=== PATIENT | male | born 1965 | race Caucasian/White ===

== ENCOUNTER 2019-03-08 11:26 | Inpatient (IN) | payer BC ==
[~2019-03-08] VITALS: Ht 185.4 cm; Wt 75.7 kg
[~2019-03-08 11:26] MED LIST: BYSTOLIC 5 MG5 M1 PO; FISH OIL 500 M1 EAC2 PO; LIPITOR40 MG PO; LO-DOSE ASPIRIN81 M1 PO; LOPRESSOR 50 MG50 M1 PO; LOPRESSOR25 PO; MULTI-VITAMIN1 EAC5 PO; PLAVIX 75 MG TA75 M1 PO; TOPROL XL50 MG PO; ZANTAC 150MG T150 M1 PO
[2019-03-08 11:33] VITALS: BP 155/86
[2019-03-08 12:44] LABS: ABSOLUTE NEUTROPHILS 6.4 thou/uL (1.4-8.2); BASOPHILS 0.7 % (0.0-2.0); EOSINOPHILS 0.4 % (0.0-3.0); HEMATOCRIT 48.2 % (42.0-52.0); HEMOGLOBIN 16.6 gm/dL (14.0-18.0); LYMPHOCYTES 12.5 % (24.0-44.0); MCH 31.4 pg (26.0-34.0); MCHC 34.5 g/dL (28.0-37.0); MONOCYTES 5.1 % (1.0-8.0); PLATELET COUNT 151 thou/uL (150-400); POLYS 81.3 % (36.0-66.0); RDW 13.5 % (10.5-14.5); WBC 7.9 thou/uL (4.0-11.0)
[2019-03-08 12:51] LABS: ANION GAP 11 mmol/L (7-16); BUN 13 mg/dL (7-18); CALCIUM 9.3 mg/dL (8.5-10.1); CHLORIDE 103 mmol/L (98-107); CO2 26 mmol/L (21-32); GLUCOSE 93 mg/dL (74-106); POTASSIUM 3.9 mmol/L (3.5-5.1); SODIUM 140 mmol/L (136-145)
[2019-03-08 13:00] LABS: TROPONIN-I <0.06 ng/mL (<0.06)
[2019-03-08 16:29] VITALS: BP 155/86
[2019-03-08 16:54] VITALS: BP 118/62
[2019-03-08 17:45] VITALS: BP 175/100
--- NOTE | 2019-03-08 19:31 | NUR ---
PATIENT ARRIVED FROM ED VIA W/C. ALERT AND ORIENTED X4. CP AT 08/18, SPOUSE AT BEDSIDE. S/B LAMMOGLIA. ADMISSION COMPLETED.
[2019-03-08 20:34] VITALS: BP 143/84
[2019-03-09] VITALS (13 sets, daily range): BP systolic 106–414; BP diastolic 71–89
--- NOTE | 2019-03-09 06:19 | NUR ---
PT A&O, NO CHEST PAIN OVERNIGHT. PT C/O MILD GENERALIZED ACHES. OBTAINED ORDER FOR TYLENOL, WHICH HELPED RESOLVE ACHES. PT REFUSED 2000 TROPONIN LAST NIGHT D/T DR. DOSS TOLD HIM THEY WOULD NOT CHECK IT AGAIN TILL MORNING. WILL CONTINUE TO MONITOR.
--- NOTE | 2019-03-09 17:11 | NUR ---
ASSUMED CARE AT SHIFT CHANGE, ALERT AND ORIENTED X4. DENIES ANY CP OR DISCOMFORT. VSS. CATHED TODAY BY DR DOSS AND INTERVETILIANNE. RT [facility] SITE D/C/I. ON BED REST UNTIL 1945, AND WILL CONTINUE WITH POC.
--- NOTE | 2019-03-09 22:30 | NUR ---
D/C HOME WITH 2027 PER SELAM. AM NURSE GAVE ALL DISCHARGE PAPER/TEACHING. IV D/C THIS SHELBYE.
--- NOTE | 2019-03-11 08:08 | EKG ---
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 : 1965 Requested By: Solitario Vidal Order Number: [id number] MD: Valeriano Collier Measurements Intervals [place] Rate: 64 P: 39 [place]: 159 QRS: 18 QRSD: 100 T: 61 QT: 413 QTc: 426 Interpretive Statements Sinus rhythm Nonspecific ST and T wave abnormality Compared to ECG 04/01/2012 11:18:25 Nonspecific change in the ST and T-wave segments Electronically Signed On 03-11-2019 8:08:03 CDT by Valeriano Collier [email or web address] <ELECTRONICALLY SIGNED> By: Valeriano Collier MD, [facility] 03/11/19 0808 [id number] [id number] Valeriano Collier MD, [facility] /EPI
--- NOTE | 2019-03-11 08:59 | EKG ---
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1965 Requested By: Solitario Vidal Order Number: [id number] MD: Vicente Peralta Measurements Intervals [place] Rate: 63 P: -15 ID: 134 QRS: -1 QRSD: 105 T: 45 QT: 444 QTc: 455 Interpretive Statements Sinus rhythm Borderline T wave abnormalities Minimal ST elevation, anterior leads Compared to ECG 04/01/2012 11:18:25 T-wave abnormality now present ST (T wave) deviation now present Electronically Signed On 03-11-2019 8:59:08 CDT by Vicente Peralta [email or web address] <ELECTRONICALLY SIGNED> By: Vicente Peralta MD 03/11/19 0859 1624 1624 Vicente Peralta MD /EPI
--- NOTE | 2019-03-11 09:03 | EKG ---
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
--- NOTE | 2019-03-11 17:35 | CATHLAB ---
[facility] [address] [place] [address] INVASIVE PROCEDURE REPORT Name: TE ELIZABETH Room #: 214-P [facility] IN M.R.#: [id number] Admission: 03/08/19 Attend Phys: Bud Dobson, Discharge: 03/09/19 Date of : 61 Date of Service: 03/11/19 1735 Report #: [id number] THIS REPORT FOR: //name// APPROVED REPORT Study performed: 03/09/2019 14:21:36 Patient Details Patient Status: In-Patient Room #: The patient is a 53 year-old male Event Personnel Bud Dobson Labor Standards Director, Michael Hamilton RN RN, Divya Bradley Monitor, Fabiano Whitaker RTR Scrub Procedures Performed Art Access - R femoral artery* 67828 Initial Mod Sed Same Phys/QHP Gr5y 724761 27067 Mod Sed Same Phys/QHP Ea 987836 Left Heart Cath w/or w/o Coronaries [id number] [facility] Aortogram Abdominal Peripheral Angio 827785 Hemostasis w/ Mynx Indication Chest pain Procedure Narrative The patient was brought urgently to the Cardiac Catheterization Laboratory and was prepped and draped in a sterile manner. The Right Groin^ was infiltrated with 1% Lidocaine subcutaneous anesthesia. A PINNACLE 6FR Sheath #[id number] sheath was inserted into the RFA^. Coronary angiography was performed using coronary diagnostic catheters. The right coronary system was accessed and visualized with a JL 4 catheter. The left coronary system was accessed and visualized with a JL 5 catheter. The left ventricle was accessed and visualized with a Pigtail catheter. Left ventriculogram was performed in BAUTISTA projection. An aortogram of the abdominal aorta was performed. Pre-demployment femoral angiogram was performed . Closure device was deployed with a 6 Fr Mynx. The patient tolerated the procedure well and there were no complications associated with the procedure. There was no hematoma. Intraoperative Conscious Sedation Sedation start time: 15:09 Case end Time: 15:55 Fentanyl 200 mcg Versed 4 mg [facility] [address] [place] [address] INVASIVE PROCEDURE REPORT Name: TE ELIZABETH Room #: 214-P [facility] IN .R.#: [id number] Admission: 03/08/19 Attend Phys: Bud Dobson, Discharge: 03/09/19 Date of : 61 Date of Service: 03/11/19 1735 Report #: [id number] Fluoro Time: 5.40 minutes Dose: DAP 4620.00 cGycm2 546 mGy Contrast Type and Amount: Omnipaque 120 ml Hemodynamics The aortic pressure is 124/71 mmHg with a mean of 94 mmHg. The left ventricular pressure is 148/10 mmHg with a mean of mmHg. The left ventricular end diastolic pressure is 24 mmHg. Conclusion #1 left main with distal narrowing of 30% giving rise to a ramus LAD and circumflex #2 the LAD previously stented has a 60% to 70% stenosis proximal to previously placed stent which is mildly re-narrowed this and extends around the apex was this shows no progression since the catheterization of 2011. Not flow limiting. #3 there is a ramus intermedius with bifurcates the proximal portion of this ramus is also 60-70% but appears unchanged on the exam of 2012. #4 ostial circumflex 40-50% disease with a well preserved circumflex OM otherwise #5 large dominant right coronary artery was mildly ectatic there is no occlusive disease noted. #6 normal left ventricular size with subtle anterior apical wall leg EF 55% #7 abdominal aorta is intact without aneurysm single bilateral renal arteries appear widely patent Recognitions and plan: Is not clear the etiology for troponin of 1.08. I don't see evidence of significant progression since exam of 2011. He's had no symptoms and is otherwise very active until the event yesterday morning. Will continue current regimen I have added 5 mg of by systolic for cardioprotection and vasodilatation. I will follow up with Mr. elizabeth in 2-3 weeks. Transfer to CCU for discharge protocol. <ELECTRONICALLY SIGNED> By: Bud Dobson MD, FACC 03/11/19 1735 173 173 Bud Dobson MD, FACC /INF
--- NOTE | 2019-03-12 17:11 | H ---
[facility] [place] [address] HISTORY AND PHYSICAL Name: SIIDRO ELIZABETH Room #: 214-P [facility] IN M.R.#: [id number] Admission: 03/08/19 Attend Phys: Bud Dobson MD, Discharge: 03/09/19 Date of : 61 Report #: [id number] THIS REPORT FOR: //name// CC: Isidro Dobson DATE OF SERVICE: 03/08/2019 HISTORY OF PRESENT ILLNESS: The patient is a 53-year-old male well known to myself who was playing basketball this morning, had an episode of substernal chest pain and radiation to left arm. History of 2 coronary stents placed to his LAD by Dr. Solitario Garza 11 years ago. I performed cardiac catheterization on the patient in 2011. LAD stents are widely patent, circ and RCA had mild disease. There was a trifurcation diagonal branch relatively small that had moderate disease of 70-75%. He has not had any recurrent anginal symptoms. He seems me regularly for yearly stress test the last of which was 6 months ago or so. His only medications are aspirin and Lipitor. His lipids have been well controlled. There has been no fatigue, shortness of breath, dyspnea or change in exercise tolerance as symptoms were prior to his stents in 2010. PAST MEDICAL HISTORY: Positive for cardiac stents, hypercholesterolemia, hypertension which really has been well controlled without medications, tonsillectomy, appendectomy and ruptured disk. SOCIAL HISTORY: He is . No tobacco use. Minimal social alcohol use. Still walks on a daily basis. FAMILY HISTORY: Father had coronary artery disease, but he was older. REVIEW OF SYSTEMS: Negative except for stated above with some nocturia. PHYSICAL EXAMINATION: VITAL SIGNS: Blood pressure is 150/98, pulse 60s and regular. HEENT: Eyes reveal xanthelasmas. Pharynx is clear. NECK: Shows preserved upstrokes without JVD or bruits. LUNGS: Clear. CARDIOVASCULAR: Regular rate and rhythm, S1, S2, without murmur or gallop. ABDOMEN: Soft. No HSM or abdominal bruit. EXTREMITIES: Reveal no edema. His pulses are intact. NEUROLOGIC: Nonfocal. SKIN: Warm and dry without xanthoma or ulcer. MUSCULOSKELETAL: No gross joint deformity. ASSESSMENT: 1. Chest pain with no EKG changes and a very equivocal troponin. Laboratory [address] [address] HISTORY AND PHYSICAL Name: ISIDRO ELIZABETH Room #: 214-P [facility] IN M.R.#: [id number] Admission: 03/08/19 Attend Phys: Bud Dobson MD, Discharge: 03/09/19 Date of : 61 Report #: [id number] work revealed 0.06 and 0.08; 0.06 is a cutoff. Creatinine 1.0, potassium 3.9. H and H 16 and 48. Chest x-ray, no acute process. 2. Hypercholesterolemia. 3. CAD by history, prior stents placed in 2010 and a diagonal lesion from 2011 catheterization not intervened on. RECOMMENDATIONS AND PLAN: We will admit under observation. We will place in observation CCU. Repeat EKG and troponin in the a.m. This is difficult because of unfortunately holiday weekend. I do not have the capability of performing a stress test, which I would perform if the troponin does not change or essentially proceed to the catheterization lab. Further recommendations would depend on how the patient progresses tonight and what the EKG and troponin are in the morning. This has been discussed with the patient's family. He is completely pain free. He has taken his aspirin and Lipitor today. We will place him on observation and have further recommendations in the a.m. Thank you for asking me to see this patient. <ELECTRONICALLY SIGNED> By: Bud Dobson MD, FACC 03/12/19 1711 1610 1648 Bud Dobson MD, FACC /nt
--- NOTE | 2019-03-12 17:11 | D ---
[facility] [place] [address] DISCHARGE SUMMARY Name: ISIDRO ELIZABETH Room #: 214-P [facility] IN M.R.#: [id number] Admission: 03/08/19 Attend Phys: Bud Dobson MD, Discharge: 03/09/19 Date of : 61 Report #: [id number] THIS REPORT FOR: //name// CC: Isidro Dobson DATE OF SERVICE: 03/09/2019 HOSPITAL COURSE: The patient is a 53-year-old, known to myself. He admitted with having an onset of chest pain, pressure consistent with his angina playing basketball yesterday morning. Initial troponin was less than 0.06, second troponin was 0.08. I would like to keep him overnight and the troponin was 1.08 this morning with no recurrent chest pain and no EKG changes. 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 He has had no issues up until this one event yesterday. Subsequently, he was taken to the catheterization lab, which revealed minimal progression of his coronary artery disease from the last catheterization in 2011. There is a 50-60% proximal area in the LAD, proximal to previously placed stents, what appears to be an actual ramus branch high up. It is a bifurcating branch moderate size, has eccentric 60-70% lesion, but this looks completely unchanged from the prior exam. There is some slight progression in the septal visual design lead, which is small and large, mildly ectatic right and a 50-60% long PDA lesion, mid vessel, which is also unchanged. I do not see a clear indication for intervention here. Closure device was utilized. His only medications have been aspirin and Lipitor. We will continue this. I have added Bystolic 5 mg to his regimen for discharge. No lifting for 48 hours. No lying in tub, Jacuzzi or pretty for a week. I will follow up in my office with me in 2-3 weeks. If he has any recurrent pain, which he should not have symptoms from this. This anatomy appears to be unchanged from 2012. He is to call. DISCHARGE DIAGNOSES: 1. Non-ST elevation myocardial infarction, although not clear from the epicardial or from the cardiac catheterization of particular culprit with a troponin of 1.08. 2. Borderline hypertension. 3. Hypercholesterolemia. 4. Coronary artery disease with history of prior LAD stents in 2007. He has preserved ventricular function (). Heart healthy diet. Continue aerobic activity after 48 hours. <ELECTRONICALLY SIGNED> By: Bud Dobson MD, FACC 03/12/19 1711 1559 11 Bud Dobson MD, FACC /nt
== END 2019-03-09 20:27 | disposition home or self-care (01) | DRG 282 ==
LOC: ER 11:26 → EROBS 16:09 → 2N 17:23
PROVIDERS: Emergency Medicine; ADMIT Internal Medicine Cardiovascular Disease
PROC: B4101ZZ Fluoroscopy of Abdominal Aorta using Low Osmolar Contrast (ICD-10-PCS; principal; 2019-03-09)
PROC: B2111ZZ Fluoroscopy of Multiple Coronary Arteries using Low Osmolar Contrast (ICD-10-PCS; principal; 2019-03-09)
PROC: 4A023N7 Measurement of Cardiac Sampling and Pressure, Left Heart, Percutaneous Approach (ICD-10-PCS; principal; 2019-03-09)
PROC: B41F1ZZ Fluoroscopy of Right Lower Extremity Arteries using Low Osmolar Contrast (ICD-10-PCS; principal; 2019-03-09)
PROC: B2151ZZ Fluoroscopy of Left Heart using Low Osmolar Contrast (ICD-10-PCS; principal; 2019-03-09)
DX: I21.4 Non-ST elevation (NSTEMI) myocardial infarction (principal); E78.00 Pure hypercholesterolemia, unspecified; I10 Essential (primary) hypertension; I25.10 Atherosclerotic heart disease of native coronary artery without angina pectoris; Z88.2 Allergy status to sulfonamides; Z79.82 Long term (current) use of aspirin; Z79.899 Other long term (current) drug therapy; Z90.49 Acquired absence of other specified parts of digestive tract; Z95.5 Presence of coronary angioplasty implant and graft; Z82.49 Family history of ischemic heart disease and other diseases of the circulatory system
CPT/HCPCS: 10081